=== PATIENT | female | born 1980 | race Caucasian/White ===

== ENCOUNTER 2023-04-10 14:01 | Outpatient (REF) | payer MEDICAID, SELFPAY ==
[2023-04-10 14:23] LABS: MANUAL DIFF FLAG NO
[2023-04-10 14:27] LABS: Basophils Absolute Auto 0.1 X10*3/uL (0.0-0.2); Eosinophils Absolute Auto 0.1 X10*3/uL (0.0-0.4); Eosinophils Percent Auto 2.7 % (0-4); Hematocrit 33.3 % (37.0-47.0); Imm Gran Abs Auto 0.01 X10*3/uL (0.00-0.03); Imm Gran Pct Auto 0.2 % (0.0-0.4); Lymphocytes Absolute Auto 1.8 X10*3/uL (1.2-4.9); Lymphocytes Percent Auto 37.1 % (20-40); Mean Corpuscular Hemoglobin 23.5 pg (27.0-33.0); Mean Corpuscular Volume 78.4 fL (80.0-98.0); Mean Platelet Volume 9.1 fL (9.4-12.3); Monocytes Absolute Auto 0.6 X10*3/uL (0.1-1.2); Monocytes Percent Auto 13.1 % (2-11); Neutrophils Absolute Auto 2.2 x10*3/uL (2.0-8.3); Neutrophils Percent Auto 45.9 % (45-73); Platelet Count 357 X10*3/uL (160-400); Red Blood Count 4.25 X10*6/uL (4.20-5.50); Red Cell Distribution Width 14.3 % (11.0-16.0); White Blood Count 4.9 X10*3/uL (4.8-10.8)
[2023-04-10 15:52] LABS: Alanine Aminotransferase 7 U/L (0-31); Albumin Level 3.8 g/dL (3.5-5.0); Alkaline Phosphatase 66 U/L (39-117); Anion Gap 11 (12-20); Aspartate Amino Transferase 13 U/L (5-31); Bilirubin Total 0.8 mg/dL (0.0-1.0); Blood Urea Nitrogen 12 mg/dL (9-16); Calcium 9.2 mg/dL (8.4-10.2); Carbon Dioxide 25 mmol/L (22-29); Chloride 108 mmol/L (96-108); Cholesterol 144 mg/dL; Estimated Glomerular Filt Rate > 60; Glucose Random 72 mg/dL (60-115); HDL Cholesterol 42 mg/dL; LDL Cholesterol Calculated 95 mg/dl; Potassium 3.8 mmol/L (3.3-5.1); Sodium 140 mmol/L (135-145); Triglycerides 38 mg/dL
[2023-04-10 16:00] LABS: Ferritin 6 ng/mL (10-250); Thyroid Stimulating Hormone 2.22 uIU/mL (0.32-4.0)
== END 2023-04-10 14:02 | disposition home or self-care (01) ==
LOC: HO.LAB 14:01
PROVIDERS: PCP Internal Medicine; Visit Provider Internal Medicine
DX: Z00.01 Encounter for general adult medical examination with abnormal findings (principal); E28.2 Polycystic ovarian syndrome; I10 Essential (primary) hypertension; R21 Rash and other nonspecific skin eruption; Z98.84 Bariatric surgery status
CPT/HCPCS: 36415; 80053; 80061; 82728; 84443; 85025

== ENCOUNTER 2023-04-17 16:19 | Outpatient (REF) | payer MEDICAID, SELFPAY ==
--- NOTE | ~2023-04-17 | MM_ITS ---
EXAMINATION: MM SCREENING DIGITAL BREAST TOMOSYNTHESIS, BILATERAL CLINICAL INFORMATION: Screening. Asymptomatic. Prior dag-bg-uhpap mammography from [place] currently unavailable. The lifetime risk of breast cancer based on the Tyrer-Cuzick Model is 14%. COMPARISON: None. TECHNIQUE: Digital breast tomosynthesis is performed in both the craniocaudal and mediolateral oblique views along with computer-aided detection (CAD). Synthesized 2D images are generated from the tomosynthesis. Additional left MLO view is provided. FINDINGS: There are scattered areas of fibroglandular density (ACR BI-RADS breast composition Category b). There are no significant masses, abnormal calcifications, or other abnormalities. No architectural abnormality. The axilla and skin contours are unremarkable. Radiology department staff will attempt to retrieve prior [id number]-[id number] mammography to allow for comparison in an addendum report. MM/MM tomosynthesis screening BI IMPRESSION: No mammographic evidence of malignancy. ASSESSMENT: BI-RADS 1: Negative RECOMMENDATION: 1. Routine annual mammography screening. 2. Radiology department staff will attempt to retrieve prior [id number] mammography to allow for comparison in an addendum report. This patient's information was entered into a reminder system with a target due date for their next mammogram.
== END 2023-04-17 16:20 | disposition home or self-care (01) ==
LOC: HO.MAMMO 16:19
PROVIDERS: PCP Internal Medicine; Visit Provider Internal Medicine
DX: Z12.31 Encounter for screening mammogram for malignant neoplasm of breast (principal)
CPT/HCPCS: 77063; 77067

== ENCOUNTER → 2023-05-08 13:26 | Outpatient (BNVA) | payer MEDICAID, SELFPAY | PROVIDERS: PCP Internal Medicine; Visit Provider Physician Assistant ==

== ENCOUNTER 2023-05-17 13:32 | Emergency (ER) | payer MEDICAID, SELFPAY ==
--- NOTE | ~2023-05-17 | US_ITS ---
EXAMINATION: US PELVIS CLINICAL INFORMATION: Pelvic pain rule out torsion. Past history of tubal ligation. COMPARISON: None available. TECHNIQUE: Ultrasound of the pelvis is performed using both transabdominal and transvaginal transducers along with Doppler. Transvaginal imaging is performed due to inadequate visualization transabdominally. FINDINGS: Uterus: The uterus is anteverted, anteflexed and measures 11.5 cm in length, 3.6 mL in AP and 5.7 cm transverse dimension. There is minimal fluid visualized in the cervical canal. The double wall endometrial thickness is 0.7 cm. The uterus is smooth in contour and has normal myometrial echogenicity. No visible fibroid. Adnexa: Both ovaries are visualized. There is normal color flow to the adnexa. There is no ovarian torsion. There is no pelvic ascites or fluid collection. Right ovary measures 2.4 x 2.0 x 2.5 cm and and volume 6.3 mL. There is an echogenic structure measuring 0.5 x 0.3 x 0.5 cm. Left ovary measures 5.4 x 3.3 x 4.0 cm and volume 37.3 mL. There is partially echogenic lesion left ovary measuring 2.4 x 2.3 x 2.6 cm. Question fatty lesion or dermoid. There is normal arterial and venous flow seen both ovaries with no suspicion for torsion. There is small amount of free fluid in the cul-de-sac.. US/US pelvic ovarian doppler IMPRESSION: Unremarkable uterus. Small echogenic calcification right ovary and fatty tumor or dermoid left ovary. Normal arterial and venous flow seen to both ovaries with no suspicion for torsion
--- NOTE | ~2023-05-17 | US_ITS ---
EXAMINATION: US PELVIS CLINICAL INFORMATION: Pelvic pain rule out torsion. Past history of tubal ligation. COMPARISON: None available. TECHNIQUE: Ultrasound of the pelvis is performed using both transabdominal and transvaginal transducers along with Doppler. Transvaginal imaging is performed due to inadequate visualization transabdominally. FINDINGS: Uterus: The uterus is anteverted, anteflexed and measures 11.5 cm in length, 3.6 mL in AP and 5.7 cm transverse dimension. There is minimal fluid visualized in the cervical canal. The double wall endometrial thickness is 0.7 cm. The uterus is smooth in contour and has normal myometrial echogenicity. No visible fibroid. Adnexa: Both ovaries are visualized. There is normal color flow to the adnexa. There is no ovarian torsion. There is no pelvic ascites or fluid collection. Right ovary measures 2.4 x 2.0 x 2.5 cm and and volume 6.3 mL. There is an echogenic structure measuring 0.5 x 0.3 x 0.5 cm. Left ovary measures 5.4 x 3.3 x 4.0 cm and volume 37.3 mL. There is partially echogenic lesion left ovary measuring 2.4 x 2.3 x 2.6 cm. Question fatty lesion or dermoid. There is normal arterial and venous flow seen both ovaries with no suspicion for torsion. There is small amount of free fluid in the cul-de-sac.. US/US pelvic and transvaginal IMPRESSION: Unremarkable uterus. Small echogenic calcification right ovary and fatty tumor or dermoid left ovary. Normal arterial and venous flow seen to both ovaries with no suspicion for torsion
[2023-05-17 14:08] VITALS: BP 130/77; PULSE 71; RESP 16; TEMP 36.2; O2SAT 100; BMI 36.4
[2023-05-17 14:30] LABS: MANUAL DIFF FLAG NO
[2023-05-17 14:31] LABS: Basophils Absolute Auto 0.1 X10*3/uL (0.0-0.2); Basophils Percent Auto 0.7 % (0-2); Eosinophils Absolute Auto 0.1 X10*3/uL (0.0-0.4); Hematocrit 36.7 % (37.0-47.0); Hemoglobin 10.5 g/dl (12.0-16.0); Imm Gran Abs Auto 0.02 X10*3/uL (0.00-0.03); Imm Gran Pct Auto 0.3 % (0.0-0.4); Lymphocytes Absolute Auto 1.6 X10*3/uL (1.2-4.9); Lymphocytes Percent Auto 22.3 % (20-40); Mean Corpuscular HGB Conc 28.6 g/dl (31.0-35.0); Mean Corpuscular Hemoglobin 22.2 pg (27.0-33.0); Mean Corpuscular Volume 77.8 fL (80.0-98.0); Mean Platelet Volume 8.9 fL (9.4-12.3); Monocytes Absolute Auto 0.8 X10*3/uL (0.1-1.2); Monocytes Percent Auto 11.9 % (2-11); Neutrophils Absolute Auto 4.4 x10*3/uL (2.0-8.3); Neutrophils Percent Auto 63.8 % (45-73); Platelet Count 367 X10*3/uL (160-400); Red Blood Count 4.72 X10*6/uL (4.20-5.50); Red Cell Distribution Width 14.8 % (11.0-16.0)
[2023-05-17 14:34] LABS: Appearance Urine Clear; Color Urine Yellow; Glucose Urine UA Negative (Negative); Leukocyte Esterase Urine Negative (Negative); Nitrite Urine Negative (Negative); PH 5.5 (5.0-9.0); Specific Gravity - Urine 1.025 (1.005-1.025); Urine Blood Negative (Negative); Urine Ketones Trace mg/dL (Negative); Urine Protein Negative (Neg-Trace)
[2023-05-17 14:36] LABS: UPreg QC Valid YES; Urine Pregnancy NEGATIVE (NEGATIVE)
--- NOTE | 2023-05-17 14:38 | ED_ITS ---
HPI - Abdominal Pain General Chief Complaint: Abdominal Pain Stated Complaint: lower abd pain Time Seen by Provider: 05/17/23 14:34 Source: patient Mode of arrival: ambulatory Limitations: no limitations History of Present Illness HPI narrative: This is a 42 years old female presented to the emergency department with a chief complaint of lower abdominal pain. Pain started a couple of days ago. She has history of ovarian cysts. The pain is localized in the lower abdomen without radiation there is no fever no chills no vomiting. MD elicited complaint: abdominal pain Pertinent past history: other (ovarian cyst) Onset (ago): day(s) (3) Pain Consistency: constant Location: other (pelvis) Severity: mild Quality: aching Migration to: no migration Associated symptoms: denies other symptoms Related Data Home Medications Medication Instructions Recorded Confirmed ferrous sulfate 325 mg (65 mg 325 mg PO DAILY 05/08/23 05/08/23 iron) tablet (Feosol) Allergies Allergy/AdvReac Type Severity Reaction Status Date / Time avocado Allergy Intermediate Anaphylaxis Verified 05/08/23 14:09 perez Allergy Intermediate Anaphylaxis Verified 05/08/23 14:09 NUTS Allergy Intermediate Anaphylaxis Uncoded 05/08/23 14:09 Review of Systems Constitutional: Reports no additional constitutional complaints Reports system reviewed and no additional complaints, except as documented PMFSH Past Medical History Attestation statement: The following information was validated with the patient. Surgical History History of sleeve gastrectomy Hx of abdominoplasty Hx of section Hx of tubal ligation Family History Family History Mother Diabetes Hypertension Father Diabetes Hypertension History of open heart surgery Sister Hypertension Fatty liver Sister Diabetes Hypertension Fatty liver Social History Social History Alcohol intake: current Alcohol intake frequency: does not drink Patient Tobacco Use Status: Former Tobacco user Quit Date: 1999 Physical Exam ED Vital Signs: Vital Signs - 24 hr 05/17/23 14:08 05/17/23 15:45 Temperature 97.2 F Pulse Rate 71 62 Respiratory Rate 16 17 Blood Pressure 130/77 129/62 Pulse Oximetry 100 99 Oxygen Delivery Method Room Air Room Air BMI result Body Mass Index 36.4 Const General: cooperative Nutritional Appearance: well nourished Orientation/consciousness: patient oriented x3 Limitations: no limitations HENMT Head: Yes normal to inspection Ears: hearing grossly normal bilaterally General nose exam: Normal external nose present Face and sinus: Yes normal facial exam Mouth: Normal oral and palatal mucosa present Throat: Yes posterior oropharynx normal Neck Neck: Yes normal visual inspection Thyroid: Thyroid normal Chest Chest palpation & inspection: normal inspection of the chest Resp Effort & Inspection: normal respiratory effort GI Inspection: Yes normal to inspection Palpation (GI): Soft to palpation, not firm, nontender and no guarding Skin General skin exam: no rashes or lesions noted, elasticity normal and turgor normal Lesions: no lesions Rashes: no rashes Neuro General: patient oriented x3 Medical Decision Making Medical Decision Making MDM Narrative: Patient presented complaining of lower abdominal pain she has history of ovarian cyst it is reasonable to get an ultrasound labs, urine and reassessed Differential Diagnosis Differential Diagnoses: The differential diagnosis associated with the presen tation includes Ovarian torsion/ovarian cyst/doubt appendicitis pain is not localized in the right/doubt diverticulitis patient has no localized in the left Admission/Observation Consideration of admission/observation: Escalation of care including admission/observation considered Lab Data 05/17/23 14:25 05/17/23 14:25 Labs: Lab Results 05/17/23 05/17/23 05/17/23 Range/Units 14:25 14:25 14:25 WBC 7.0 (4.8-10.8) X10*3/uL RBC 4.72 (4.20-5.50) X10*6/uL Hgb 10.5 L (12.0-16.0) g/dl Hct 36.7 L (37.0-47.0) % MCV 77.8 L (80.0-98.0) fL MCH 22.2 L (27.0-33.0) pg MCHC 28.6 L (31.0-35.0) g/dl RDW 14.8 (11.0-16.0) % Plt Count 367 (160-400) X10*3/uL MPV 8.9 L (9.4-12.3) fL Immature Gran % (Auto) 0.3 (0.0-0.4) % Neut % (Auto) 63.8 (45-73) % Lymph % (Auto) 22.3 (20-40) % [place] % (Auto) 11.9 H (2-11) % Eos % (Auto) 1.0 (0-4) % Baso % (Auto) 0.7 (0-2) % Lymph # (Auto) 1.6 (1.2-4.9) X10*3/uL [place] # (Auto) 0.8 (0.1-1.2) X10*3/uL Eos # (Auto) 0.1 (0.0-0.4) X10*3/uL Baso # (Auto) 0.1 (0.0-0.2) X10*3/uL Abs Immat Gran (auto) 0.02 (0.00-0.03) X10*3/uL Absolute Neuts (auto) 4.4 (2.0-8.3) x10*3/uL Absolute Nucleated RBC 0.000 (0.0-0.012) X10*3/uL Nucleated RBC % (auto) 0.0 (0.0-0.2) /100WBC Sodium 140 (135-145) mmol/L Potassium 3.5 (3.3-5.1) mmol/L Chloride 106 (96-108) mmol/L Carbon Dioxide 26 (22-29) mmol/L Anion Gap 12 (12-20) BUN 12 (9-16) mg/dL Creatinine 0.74 (0.5-1.4) mg/dL Estim Creat Clear Calc 93.5 Estimated GFR > 60 Random Glucose 85 (60-115) mg/dL Calcium 9.2 (8.4-10.2) mg/dL Total Bilirubin 0.8 (0.0-1.0) mg/dL Direct Bilirubin 0.3 (0.0-0.5) mg/dL AST 13 (5-31) U/L ALT 9 (0-31) U/L Alkaline Phosphatase 77 (39-117) U/L Total Protein 7.6 (6.5-8.0) g/dL Albumin 4.2 (3.5-5.0) g/dL Urine Color Yellow Urine Appearance Clear Urine pH 5.5 (5.0-9.0) Ur Specific [place] 1.025 (1.005-1.025) Urine Protein Negative (Neg-Trace) mg/dL Urine Glucose (UA) Negative (Negative) mg/dL Urine Ketones Trace (Negative) mg/dL Urine Blood Negative (Negative) Urine Nitrite Negative (Negative) Ur Leukocyte Esterase Negative (Negative) Urine Test (NEGATIVE) 05/17/23 Range/Units 14:25 WBC (4.8-10.8) X10*3/uL RBC (4.20-5.50) X10*6/uL Hgb (12.0-16.0) g/dl Hct (37.0-47.0) % MCV (80.0-98.0) fL MCH (27.0-33.0) pg MCHC (31.0-35.0) g/dl RDW (11.0-16.0) % Plt Count (160-400) X10*3/uL MPV (9.4-12.3) fL Immature Gran % (Auto) (0.0-0.4) % Neut % (Auto) (45-73) % Lymph % (Auto) (20-40) % [place] % (Auto) (2-11) % Eos % (Auto) (0-4) % Baso % (Auto) (0-2) % Lymph # (Auto) (1.2-4.9) X10*3/uL [place] # (Auto) (0.1-1.2) X10*3/uL Eos # (Auto) (0.0-0.4) X10*3/uL Baso # (Auto) (0.0-0.2) X10*3/uL Abs Immat Gran (auto) (0.00-0.03) X10*3/uL Absolute Neuts (auto) (2.0-8.3) x10*3/uL Absolute Nucleated RBC (0.0-0.012) X10*3/uL Nucleated RBC % (auto) (0.0-0.2) /100WBC Sodium (135-145) mmol/L Potassium (3.3-5.1) mmol/L Chloride (96-108) mmol/L Carbon Dioxide (22-29) mmol/L Anion Gap (12-20) BUN (9-16) mg/dL Creatinine (0.5-1.4) mg/dL Estim Creat Clear Calc Estimated GFR Random Glucose (60-115) mg/dL Calcium (8.4-10.2) mg/dL Total Bilirubin (0.0-1.0) mg/dL Direct Bilirubin (0.0-0.5) mg/dL AST (5-31) U/L ALT (0-31) U/L Alkaline Phosphatase (39-117) U/L Total Protein (6.5-8.0) g/dL Albumin (3.5-5.0) g/dL Urine Color Urine Appearance Urine pH (5.0-9.0) Ur Specific [place] (1.005-1.025) Urine Protein (Neg-Trace) mg/dL Urine Glucose (UA) (Negative) mg/dL Urine Ketones (Negative) mg/dL Urine Blood (Negative) Urine Nitrite (Negative) Ur Leukocyte Esterase (Negative) Urine Test NEGATIVE (NEGATIVE) Discharge Plan Discharge Clinical Impression: Pelvic pain Patient Disposition: Still a Patient Instructions: Pelvic Pain (ED) Prescriptions: No Action ferrous sulfate [Feosol] 325 mg (65 mg iron) tablet 325 mg PO DAILY
[2023-05-17 14:47] LABS: Alanine Aminotransferase 9 U/L (0-31); Albumin Level 4.2 g/dL (3.5-5.0); Alkaline Phosphatase 77 U/L (39-117); Anion Gap 12 (12-20); Aspartate Amino Transferase 13 U/L (5-31); Bilirubin Direct 0.3 mg/dL (0.0-0.5); Bilirubin Total 0.8 mg/dL (0.0-1.0); Blood Urea Nitrogen 12 mg/dL (9-16); Calcium 9.2 mg/dL (8.4-10.2); Carbon Dioxide 26 mmol/L (22-29); Chloride 106 mmol/L (96-108); Creatinine Clr Calc Pharmacy 93.5; Estimated Glomerular Filt Rate > 60; Glucose Random 85 mg/dL (60-115); Potassium 3.5 mmol/L (3.3-5.1); Sodium 140 mmol/L (135-145); Total Protein 7.6 g/dL (6.5-8.0)
[2023-05-17 15:45] VITALS: BP 129/62; PULSE 62; RESP 17; O2SAT 99
[2023-05-17] MEDS: oxyCODONE HCl Immed Release 5 MG TABLET PO (16:51)
[2023-05-17 16:53] VITALS: RESP 16
== END 2023-05-17 17:02 | disposition home or self-care (01) ==
PROVIDERS: Emergency Medicine; Emergency Provider Emergency Medicine; PCP Internal Medicine
DX: R10.2 Pelvic and perineal pain (principal); N83.8 Other noninflammatory disorders of ovary, fallopian tube and broad ligament
CPT/HCPCS: 36415; 76830; 76856; 80048; 80076; 81003; 81025; 85025; 93975; 99284

== ENCOUNTER 2023-06-05 13:23 | Outpatient (AMB) | payer MEDICAID, SELFPAY ==
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
[2023-06-05 13:37] VITALS: BP 137/67; PULSE 70; TEMP 36.3; O2SAT 98; BMI 33.8
[2023-06-23 14:26] LABS: H Pylori Breath Test Positive (Negative)
== END 2023-06-05 14:55 | disposition home or self-care (01) ==
PROVIDERS: PCP Internal Medicine; Visit Provider Physician Assistant
DX: E66.9 Obesity, unspecified (principal); Z68.33 Body mass index [BMI] 33.0-33.9, adult; Z90.3 Acquired absence of stomach [part of]; Z98.84 Bariatric surgery status
CPT/HCPCS: 99205

== ENCOUNTER → 2023-06-05 13:23 | Outpatient (BNVA) | payer MEDICAID, SELFPAY | PROVIDERS: PCP Internal Medicine; Visit Provider Physician Assistant | DX: K21.9 Gastro-esophageal reflux disease without esophagitis (principal); E66.9 Obesity, unspecified; D64.9 Anemia, unspecified; Z68.33 Body mass index [BMI] 33.0-33.9, adult; Z90.3 Acquired absence of stomach [part of]; Z11.2 Encounter for screening for other bacterial diseases; Z98.890 Other specified postprocedural states | CPT/HCPCS: 36415; 83013; 99205 ==

== ENCOUNTER 2023-06-07 06:10 | Emergency (ER) | payer OTHER, MEDICAID, SELFPAY ==
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
--- NOTE | ~2023-06-07 | XR_ITS ---
EXAMINATION: XR SHOULDER, RIGHT CLINICAL INFORMATION: Pain COMPARISON: None available. TECHNIQUE: AP external rotation, Grashey, scapular Y, and axillary views of the right shoulder. FINDINGS: Bone alignment is normal. No acute fracture or dislocation. There is mild arthritis at the acromioclavicular joint. There are periarticular soft tissue ossifications in this region adjacent to the acromion, question representing osteophyte/degenerative change versus changes related to old trauma. Glenohumeral joint is normal. Soft tissues are normal. XR/XR shoulder RT min 2V IMPRESSION: No acute fracture. Arthritis at the acromioclavicular joint. Question osteophytes versus old trauma to the acromion.
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
[2023-06-07 06:27] VITALS: BP 139/71; PULSE 61; RESP 18; TEMP 36.4; O2SAT 99; BMI 36.6
[2023-06-07 07:01] VITALS: BP 166/77; PULSE 103; RESP 18; TEMP 36.9; O2SAT 98
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
[2023-06-07 08:33] VITALS: BP 120/64; PULSE 56; RESP 18; TEMP 36.7; O2SAT 98
--- NOTE | 2023-06-07 10:11 | PC.NURSE ---
Discharge instructions reviewed with patient who verbalized understanding
== END 2023-06-07 10:12 | disposition home or self-care (01) ==
PROVIDERS: Emergency Provider Emergency Medicine Emergency Medical Services; PCP Internal Medicine
DX: M19.019 Primary osteoarthritis, unspecified shoulder (principal); M25.562 Pain in left knee; M25.561 Pain in right knee; R51.9 Headache, unspecified; M54.2 Cervicalgia; S00.93XA Contusion of unspecified part of head, initial encounter; S40.011A Contusion of right shoulder, initial encounter; S80.02XA Contusion of left knee, initial encounter; S80.01XA Contusion of right knee, initial encounter; V43.62XA Car passenger injured in collision with other type car in traffic accident, initial encounter; Y93.9 Activity, unspecified; Y92.9 Unspecified place or not applicable; Y99.9 Unspecified external cause status
CPT/HCPCS: 70450; 72125; 73030; 73562; 99284

== ENCOUNTER → 2023-06-19 13:49 | Outpatient (BNVA) | payer MEDICAID, SELFPAY | PROVIDERS: PCP Internal Medicine; Referring Provider Physician Assistant; Visit Provider Dietitian, Registered | DX: E66.9 Obesity, unspecified (principal) | CPT/HCPCS: 97802; 99211 ==

== ENCOUNTER 2023-06-19 16:30 | Outpatient (REF) | payer MEDICAID, SELFPAY ==
--- NOTE | ~2023-06-19 | XR_ITS ---
EXAMINATION: XR HAND, RIGHT CLINICAL INFORMATION: Pain. COMPARISON: None available. TECHNIQUE: PA, lateral, and oblique views of the right hand. FINDINGS: The bones and soft tissues are normal. No fracture. Alignment is anatomic. Joint spaces are maintained. No erosions or soft tissue calcifications. XR/XR hand RT min 3V IMPRESSION: Normal right hand.
== END 2023-06-19 16:31 | disposition home or self-care (01) ==
LOC: HO.XRAY 16:30
PROVIDERS: PCP Internal Medicine; Visit Provider Internal Medicine
DX: M79.641 Pain in right hand (principal)
CPT/HCPCS: 73130

== ENCOUNTER 2023-06-26 13:27 | Outpatient (AMB) | payer MEDICAID, SELFPAY ==
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
[2023-06-26 13:43] VITALS: BP 143/74; PULSE 71; TEMP 36.6; O2SAT 99; BMI 35.5
== END 2023-06-26 14:18 | disposition home or self-care (01) ==
PROVIDERS: PCP Internal Medicine; Visit Provider Physician Assistant
DX: E66.9 Obesity, unspecified (principal); Z90.3 Acquired absence of stomach [part of]; K21.9 Gastro-esophageal reflux disease without esophagitis
CPT/HCPCS: 99214

== ENCOUNTER → 2023-06-26 13:27 | Outpatient (BNVA) | payer MEDICAID, SELFPAY | PROVIDERS: PCP Internal Medicine; Visit Provider Physician Assistant | DX: E66.9 Obesity, unspecified (principal); Z68.35 Body mass index [BMI] 35.0-35.9, adult; K21.9 Gastro-esophageal reflux disease without esophagitis; Z90.3 Acquired absence of stomach [part of] | CPT/HCPCS: 99212 ==

== ENCOUNTER 2023-07-01 11:54 | Outpatient (REF) | payer MEDICAID, SELFPAY ==
--- NOTE | ~2023-07-01 | XR_ITS ---
EXAMINATION: XR CHEST CLINICAL INFORMATION: Obesity COMPARISON: None available. TECHNIQUE: 2 views of the chest were obtained. FINDINGS: Lungs are well-inflated and clear. Trachea is midline in position. No interstitial disease, consolidation or mass. No pleural effusion or pneumothorax. Cardiac silhouette and pulmonary vessels are normal in size. The mediastinum and maya have normal contour. Small anastomotic wade are seen in the epigastric region. Skeletal structures are unremarkable. XR/XR chest 2V IMPRESSION: Lungs are normal. No evidence of active cardiopulmonary disease.
--- NOTE | 2023-07-01 12:13 | ECG_ITS ---
Test Reason : e66.9 Blood Pressure : / mmHG Vent. Rate : 056 BPM Atrial Rate : 056 BPM P-R Int : 148 ms QRS Dur : 078 ms QT Int : 394 ms P-R-T Axes : 015 036 019 degrees QTc Int : 380 ms Sinus bradycardia Otherwise normal ECG No previous ECGs available Referred By: Cristal Shukla Electronically Signed By:BERNADINE SCHOFIELD
[2023-07-01 12:16] LABS: MANUAL DIFF FLAG NO
[2023-07-01 13:36] LABS: Basophils Absolute Auto 0.1 X10*3/uL (0.0-0.2); Basophils Percent Auto 1.5 % (0-2); Eosinophils Absolute Auto 0.1 X10*3/uL (0.0-0.4); Eosinophils Percent Auto 2.8 % (0-4); Hemoglobin 9.6 g/dl (12.0-16.0); Imm Gran Abs Auto 0.01 X10*3/uL (0.00-0.03); Imm Gran Pct Auto 0.3 % (0.0-0.4); Lymphocytes Absolute Auto 1.5 X10*3/uL (1.2-4.9); Lymphocytes Percent Auto 37.9 % (20-40); Mean Corpuscular Hemoglobin 22.3 pg (27.0-33.0); Mean Corpuscular Volume 74.2 fL (80.0-98.0); Mean Platelet Volume 9.6 fL (9.4-12.3); Monocytes Absolute Auto 0.6 X10*3/uL (0.1-1.2); Monocytes Percent Auto 14.5 % (2-11); Neutrophils Absolute Auto 1.7 x10*3/uL (2.0-8.3); Platelet Count 388 X10*3/uL (160-400); Red Blood Count 4.31 X10*6/uL (4.20-5.50); Red Cell Distribution Width 15.7 % (11.0-16.0); White Blood Count 3.9 X10*3/uL (4.8-10.8)
[2023-07-01 14:36] LABS: Estimated Average Glucose 100 mg/dL; Hemoglobin A1c % 5.1 % (<6.0)
[2023-07-01 15:06] LABS: Alanine Aminotransferase 8 U/L (0-31); Albumin Level 3.8 g/dL (3.5-5.0); Alkaline Phosphatase 60 U/L (39-117); Anion Gap 9 (12-20); Aspartate Amino Transferase 14 U/L (5-31); Bilirubin Total 0.8 mg/dL (0.0-1.0); Blood Urea Nitrogen 11 mg/dL (9-16); C Reactive Protein < 0.10 mg/dL (< or = 0.50); Calcium 8.8 mg/dL (8.4-10.2); Carbon Dioxide 25 mmol/L (22-29); Chloride 109 mmol/L (96-108); Cholesterol 149 mg/dL (<200); Estimated Glomerular Filt Rate > 60; Glucose Random 72 mg/dL (60-115); HDL Cholesterol 45 mg/dL (>40); Iron 35 mcg/dL (30-160); LDL Cholesterol Calculated 97 mg/dL (<100); Percent Iron Saturation 10 % (15-50); Potassium 3.9 mmol/L (3.3-5.1); Sodium 139 mmol/L (135-145); Total Iron Binding Capacity 368 mcg/dL (228-428); Total Protein 6.9 g/dL (6.5-8.0); Triglycerides 36 mg/dL (<150); Unsaturated Iron Binding 333 ug/dL
[2023-07-01 15:11] LABS: Ferritin 5 ng/mL (10-250); Insulin 4 uU/mL (2-29); Vitamin D 25-OH Total 26.5 ng/mL (>30)
[2023-07-01 15:31] LABS: Folate 12.2 ng/mL (> or = 4.0); Vitamin B12 424 pg/mL (200-900)
[2023-07-02 16:38] LABS: Calcium (PTHI) 8.9 mg/dL (8.6-10.2); PTHI 75 pg/mL (16-77)
[2023-07-06 03:23] LABS: Vitamin B1 11 nmol/L (8-30)
[2023-07-08 03:30] LABS: Vitamin A 29 mcg/dL (38-98)
== END 2023-07-01 11:55 | disposition home or self-care (01) ==
LOC: HO.LAB 11:54
PROVIDERS: PCP Internal Medicine; Visit Provider Physician Assistant
DX: E66.9 Obesity, unspecified (principal); K21.9 Gastro-esophageal reflux disease without esophagitis; Z90.3 Acquired absence of stomach [part of]
CPT/HCPCS: 36415; 71046; 80053; 80061; 82306; 82607; 82728; 82746; 83036; 83525; 83540; 83970; 84425; 84443; 84590; 84630; 85025; 86140; 93005

== ENCOUNTER 2023-07-02 14:53 | Outpatient (REF) | payer MEDICAID, SELFPAY ==
[2023-07-03 08:31] LABS: ~Hepatitis B Surface Antibody NONREACTIVE (Nonreactive)
[2023-07-04 22:24] LABS: TS Negative Control Passed; TS Panel A 0; TS Panel B 0; TS Positive Control Passed; TSpotTB Negative (Negative)
== END 2023-07-02 14:54 | disposition home or self-care (01) ==
LOC: HO.LAB 14:53
PROVIDERS: PCP Internal Medicine; Visit Provider Internal Medicine
DX: I10 Essential (primary) hypertension (principal); Z11.1 Encounter for screening for respiratory tuberculosis; Z11.59 Encounter for screening for other viral diseases
CPT/HCPCS: 36415; 86481; 86706

== ENCOUNTER 2023-07-10 11:48 | Outpatient (AMB) | payer MEDICAID, SELFPAY ==
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
== END 2023-07-10 13:00 | disposition home or self-care (01) ==
PROVIDERS: PCP Internal Medicine; Referring Provider Physician Assistant; Visit Provider Counselor Mental Health
DX: F43.23 Adjustment disorder with mixed anxiety and depressed mood (principal)
CPT/HCPCS: 90791

== ENCOUNTER → 2023-07-10 11:48 | Outpatient (BNVA) | payer OTHER, SELFPAY | PROVIDERS: PCP Internal Medicine; Referring Provider Physician Assistant; Visit Provider Counselor Mental Health | DX: F43.23 Adjustment disorder with mixed anxiety and depressed mood (principal) | CPT/HCPCS: 90791 ==

== ENCOUNTER → 2023-07-17 10:42 | Outpatient (BNVA) | payer MEDICAID, SELFPAY | PROVIDERS: PCP Internal Medicine; Visit Provider Dietitian, Registered | DX: E66.9 Obesity, unspecified (principal); K21.9 Gastro-esophageal reflux disease without esophagitis; Z59.41 Food insecurity; Z90.3 Acquired absence of stomach [part of] | CPT/HCPCS: 97803 ==

== ENCOUNTER 2023-07-22 09:34 | Outpatient (REF) | payer MEDICAID, SELFPAY ==
--- NOTE | ~2023-07-22 | US_ITS ---
EXAMINATION: US COMPLETE ABDOMEN WITH LIVER ELASTOGRAPHY CLINICAL INFORMATION: Obesity. COMPARISON: None available. TECHNIQUE: Real-time imaging of the abdominal viscera. Noninvasive ultrasound liver fibrosis assessment is performed using Chyna ElastPQ point quantification shear wave elastography (2D-SWE) with a C5-2 MHz transducer. Multiple elastography samples are obtained. FINDINGS: PANCREAS: The tail of pancreas obscured by overlying gas. The head and the body the pancreas is homogeneous in echotexture. ABDOMINAL AORTA: The proximal, middle, and distal aortic segments are normal in caliber. INFERIOR VENA CAVA: Visualized portions are normal. LIVER: The liver demonstrates normal size, contour and coarse echotexture. No focal lesion or intrahepatic biliary duct dilatation. The right lobe measures 13.9 cm in length. The left lobe measures 7.5 cm in length. Portal flow is hepatopedal Shear wave liver elastography median stiffness is 1.61 m/s (reference: normal median stiffness is 1.3 m/s or less). IQR/median stiffness to assess sampling precision is 0.19 (reference: good quality data set is IQR/median stiffness of 0.15 or less). GALLBLADDER: Normal. The gallbladder is physiologically distended without evidence of stones, sludge, polyps, wall thickening or pericholecystic fluid. COMMON BILE DUCT: Normal in caliber measuring 0.2 cm in diameter. RIGHT KIDNEY: Normal. No hydronephrosis. No renal calculi or focal parenchymal lesions. The kidney measures 9.4 cm in maximum dimension. LEFT KIDNEY: Normal. No hydronephrosis. No renal calculi or focal parenchymal lesions. The kidney measures 10.6 cm in maximum dimension. SPLEEN: Normal. The spleen measures 10.0 cm in maximum dimension. FREE FLUID: None. US/US abdomen comp w elastography IMPRESSION: 1. Mild coarse echogenic liver. Rest of the abdominal ultrasound is unremarkable. 2. Liver elastography: Median liver stiffness measures 1.61 m/s. There is a suggestive of c ACLD ruled out. REFERENCE: Society of Radiologists in Ultrasound Liver Stiffness Thresholds (2020): LIVER STIFFNESS THRESHOLDS: *Liver Stiffness equal or less than 1.3 m/s: High probability of being normal. *Liver Stiffness less than 1.7 m/s: In the absence of other known clinical signs, rules out compensated advanced chronic liver disease. *Liver Stiffness 1.7-2.1 m/s: Suggestive of compensated advanced chronic liver disease but need further test for confirmation. *Liver Stiffness over 2.1 m/s: Rules in compensated advanced chronic liver disease. *Liver Stiffness over 2.4 m/s: Suggestive of clinically significant portal hypertension. QUALITY OF DATA SET: *IQR/Median value equal or less than 0.15 implies a quality data set. *IQR/Median value over 0.15 implies a poor quality data set. SIGNIFICANT CHANGE FROM PRIOR EXAM: Significant change if liver stiffness measurement is 10% or greater from prior exam. OTHER CONSIDERATIONS: The stage of liver fibrosis may be overestimated in the setting of acute hepatitis, liver inflammation, elevated liver function tests, hepatic vascular congestion, obstructive cholestasis, non-fasting state, and infiltrative diseases such as amyloidosis and lymphoma. In some patients with NAFLD, the liver stiffness thresholds for compensated advanced chronic liver disease may be lower. In causes other than viral hepatitis and NAFLD, liver stiffness thresholds are not well established.
--- NOTE | ~2023-07-22 | FL_ITS ---
EXAMINATION: XR FLUOROSCOPY UPPER GI WITH AIR CLINICAL INFORMATION: 42-year-old female status post gastric sleeve, now gaining weight once again. No other complaints. COMPARISON: No prior. TECHNIQUE: Fluoroscopic air contrast upper GI examination was performed utilizing standard techniques with thin and thick barium and effervescent granules. Numerous spot images were obtained. FINDINGS: Hypopharyngeal structures appear normal without evidence of mass or diverticulum. There was no significant cricopharyngeal achalasia. Dual and single contrast images of the esophagus demonstrate it is mildly tortuous and somewhat patulous. No mucosal abnormality. No evidence of stricture, mass, or ulcerations identified. Esophageal peristalsis was essentially normal involving the primary peristaltic wave, however mild somewhat disordered tertiary contractions were present as well, particularly when the patient refluxed. Small to moderate sized type I hiatus hernia present. Episodic and profound gastroesophageal reflux was observed numerous times throughout the examination, to the level of the thoracic inlet. Dual contrast and single contrast images of the stomach demonstrate contour consistent with prior gastric sleeve procedure. No definite dilatation seen. No evidence of mass, ulceration, or other abnormality. Contrast freely passed into the gastric antrum and duodenal bulb. Single and air-contrast images of the duodenal bulb demonstrate no abnormality. The duodenal sweep has a normal appearance, course, and mucosal fold appearance. The imaged proximal jejunum has a normal fold pattern and caliber. FLUOROSCOPY TIME: 2 minutes 44 seconds Number of Spot Images: 13 fluoroscopic spot images acquired; 4 image hold cine loop fluoroscopic images obtained. DOSE AREA PRODUCT: 3045 uGy-m2 (microgray-meter squared) FL/FL upper GI w air IMPRESSION: 1. Stomach contour as expected after gastric sleeve procedure. No definite dilatation seen. 2. Small to moderate-sized type I hiatus hernia. 3. Episodic and profound gastroesophageal reflux to the level of the thoracic inlet, likely causing a patulous esophagus with mild esophageal tortuosity. No mucosal abnormality or stricture. Mild presbyesophagus. 4. Normal duodenal bulb, duodenal sweep, and proximal jejunum.
== END 2023-07-22 09:35 | disposition home or self-care (01) ==
LOC: HO.US 09:34
PROVIDERS: PCP Internal Medicine; Visit Provider Physician Assistant
DX: E66.9 Obesity, unspecified (principal); K21.9 Gastro-esophageal reflux disease without esophagitis; Z90.3 Acquired absence of stomach [part of]
CPT/HCPCS: 74246; 76705; 76981

== ENCOUNTER → 2023-07-22 09:36 | Outpatient (BNV) | payer MEDICAID, SELFPAY | PROVIDERS: PCP Internal Medicine; Visit Provider Radiology Diagnostic Radiology | DX: K44.9 Diaphragmatic hernia without obstruction or gangrene (principal); K22.89 Other specified disease of esophagus | CPT/HCPCS: 74246 ==

== ENCOUNTER 2023-07-23 14:51 | Outpatient (AMB) | payer MEDICAID, SELFPAY ==
--- NOTE | 2023-07-23 14:52 | A.OFFVIS_ITS ---
Intake VS Expanded 07/23/23 14:56 Height 5 ft 0.5 in Weight 181 lb 6.4 oz BMI 34.8 BP 125/60 Blood Pressure Location Rt brachial Blood Pressure Position Sitting Respiratory Rate 16 Pulse 76 Pulse Source Pulse Oximeter Temp 98.5 F Temperature Source Temporal Artery Scan Pulse Oximetry 99 Oxygen Delivery Method Room Air Body Fat 57.6 Body Fat Percentage 31.8 Free Fat Mass 123.6 Muscle Mass 117.6 Visceral Mass 8.0 Water Mass 88.2 BMR 1,666 Intake Visit Reasons: (OV) F/U SWL Allergies avocado Allergy (Intermediate, Verified 07/23/23 14:59) Anaphylaxis perez Allergy (Intermediate, Verified 07/23/23 14:59) Anaphylaxis NUTS Allergy (Intermediate, Uncoded 07/23/23 14:59) Anaphylaxis Medication List - Last Reconciled 07/23/23 by Cristal Shukla PA-C acetaminophen (Tylenol Extra Strength) 500 mg PO Q6H PRN acetaminophen-codeine 300-15 mg 1 tab PO BID PRN cyclobenzaprine 5 mg PO Q8H PRN 5 days ergocalciferol (vitamin D2) 2,500 mcg PO QWEEK ferrous sulfate (Feosol) 325 mg PO DAILY lidocaine 5% (Lidoderm) 1 patch topical DAILY PRN MDD remove after 12 hours losartan 50 mg PO DAILY naproxen 500 mg PO BID PRN 10 days vitamin A palmitate 6,000 mcg (2 x 3,000 mcg (10,000 unit)) PO DAILY 2 weeks HPI HPI Comments History of Present Illness Details 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 Wakes at 10 am, bed at 3am Meal plan - no routine yet yesterday - coffee - whole milk,sugar, with 2 pieces of bread with PB 2 hours later - Ensure Pepe 4-6 hours later - vegetables with potato es and pork tenderloin. water [place] from [employer] - chicken, l&T, sour cream and cheese, water Exercise - none yet Saw physical science aide last month and given OCPS' for AUB - will start this week. SW classe - 06/03 CR - needs followup Amy - 08/21 Labs - VERY anemic, vit D and A defic hpylori - today CXR - normal UGI - 1. Stomach contour as expected after gastric sleeve procedure. No definite dilatation seen. 2. Small to moderate-sized type I hiatus hernia. 3. Episodic and profound gastroesophagea l reflux to the level of the thoracic inlet, likely causing a patulous esophagus with mild esophageal tortuosity. No mucosal abnormality or stricture. Mild presbyesophagus. 4. Normal duodenal bulb, duodenal sweep, and proximal jejunum. ECG - mild bradycardia otherwise normal [facility] Surgical History Hx of abdominoplasty History of sleeve gastrectomy Hx of tubal ligation Hx of section Family History Mother Diabetes Hypertension Father Diabetes Hypertension History of open heart surgery Sister Hypertension Fatty liver Sister Diabetes Hypertension Fatty liver Social History Alcohol intake: never Patient Tobacco Use Status: Former Tobacco user Quit Date: 1999 Advance Directives Date on File: 05/17/23 Physical Exam Vital Signs: Last Vital Signs Temp 98.5 F 07/23/23 14:56 Pulse 76 07/23/23 14:56 Resp 16 07/23/23 14:56 BP 125/60 07/23/23 14:56 Pulse Ox 99 07/23/23 14:56 Oxygen Delivery Method Room Air 07/23/23 14:56 BMI result Body Mass Index 34.8 Assessment & Plan Assessment & Plan (1) Obesity: Code(s): E66.9 - Obesity, unspecified Plan: Pt has not started our meal or exercise plan yet. She is worried about surgery and has many excuses on why she has not started yet. We discussed that she needs to decide what she wants to do. I answered questions for her about revision surgery. If she wants to proceed she will need to start the plan we discussed at our first meeting. Once again, she was todl to stop the Phentermine that she is taking (given to her years ago - does not have many pills left she states. Appt made for 3 weeks from now with me. Patient is morbidly obese and is not considered stable at this time. I spent 30 minutes in total with patient reviewing/updating records, examining the patient and counseling the patient on weight management as detailed above. (2) History of sleeve gastrectomy: Comment: 2013 Code(s): Z90.3 - Acquired absence of stomach [part of] Orders: Orders H Pylori Breath Test Today Z01.818 - Encounter for other preprocedural examination Coding Level of Care Code Est Pt Level 4 (47485) Diagnoses Obesity E66.9 History of sleeve gastrectomy Z90.3
[2023-07-23 14:56] VITALS: BP 125/60; PULSE 76; RESP 16; TEMP 36.9; O2SAT 99; BMI 34.8
== END 2023-07-23 15:37 | disposition home or self-care (01) ==
PROVIDERS: PCP Internal Medicine; Visit Provider Physician Assistant
DX: E66.9 Obesity, unspecified (principal); Z90.3 Acquired absence of stomach [part of]
CPT/HCPCS: 99214

== ENCOUNTER 2023-07-23 14:51 | Outpatient (REF) | payer MEDICAID, SELFPAY ==
[2023-07-24 14:37] LABS: H Pylori Breath Test Negative (Negative)
== END 2023-07-23 14:52 | disposition home or self-care (01) ==
LOC: HO.LNP 14:51
PROVIDERS: PCP Internal Medicine; Visit Provider Physician Assistant
DX: Z01.818 Encounter for other preprocedural examination (principal); E66.9 Obesity, unspecified; Z71.3 Dietary counseling and surveillance; Z79.899 Other long term (current) drug therapy
CPT/HCPCS: 83013; 99211; 99212

== ENCOUNTER 2023-08-12 11:56 | Outpatient (REF) | payer MEDICAID, SELFPAY ==
[2023-08-12 13:28] LABS: MANUAL DIFF FLAG NO
[2023-08-12 13:51] LABS: Basophils Percent Auto 0.6 % (0-2); Eosinophils Absolute Auto 0.1 X10*3/uL (0.0-0.4); Eosinophils Percent Auto 1.5 % (0-4); Hematocrit 31.8 % (37.0-47.0); Hemoglobin 9.2 g/dl (12.0-16.0); Imm Gran Abs Auto 0.02 X10*3/uL (0.00-0.03); Imm Gran Pct Auto 0.3 % (0.0-0.4); Lymphocytes Absolute Auto 1.8 X10*3/uL (1.2-4.9); Mean Corpuscular HGB Conc 28.9 g/dl (31.0-35.0); Mean Corpuscular Hemoglobin 21.4 pg (27.0-33.0); Mean Corpuscular Volume 74.1 fL (80.0-98.0); Mean Platelet Volume 9.6 fL (9.4-12.3); Monocytes Absolute Auto 0.8 X10*3/uL (0.1-1.2); Monocytes Percent Auto 11.7 % (2-11); Neutrophils Absolute Auto 3.7 x10*3/uL (2.0-8.3); Neutrophils Percent Auto 57.9 % (45-73); Platelet Count 402 X10*3/uL (160-400); Red Blood Count 4.29 X10*6/uL (4.20-5.50); White Blood Count 6.5 X10*3/uL (4.8-10.8)
[2023-08-12 14:13] LABS: Alanine Aminotransferase 10 U/L (0-31); Albumin Level 3.8 g/dL (3.5-5.0); Alkaline Phosphatase 57 U/L (39-117); Anion Gap 12 (12-20); Aspartate Amino Transferase 13 U/L (5-31); Bilirubin Total 0.6 mg/dL (0.0-1.0); Blood Urea Nitrogen 12 mg/dL (9-16); Calcium 8.8 mg/dL (8.4-10.2); Carbon Dioxide 23 mmol/L (22-29); Chloride 108 mmol/L (96-108); Estimated Glomerular Filt Rate > 60; Glucose Random 76 mg/dL (60-115); Potassium 3.7 mmol/L (3.3-5.1); Sodium 139 mmol/L (135-145)
[2023-08-12 14:30] LABS: Ferritin 4 ng/mL (10-250)
== END 2023-08-12 11:57 | disposition home or self-care (01) ==
LOC: HO.10HDL 11:56
PROVIDERS: Visit Provider Internal Medicine
DX: D50.8 Other iron deficiency anemias (principal); I10 Essential (primary) hypertension; R21 Rash and other nonspecific skin eruption; Z98.84 Bariatric surgery status
CPT/HCPCS: 36415; 80053; 82728; 85025

== ENCOUNTER → 2023-08-26 15:00 | Outpatient (BNVA) | payer MEDICAID, SELFPAY | PROVIDERS: PCP Internal Medicine; Visit Provider Physician Assistant | DX: Z01.818 Encounter for other preprocedural examination (principal) ==

== ENCOUNTER 2023-09-23 15:27 | Outpatient (AMB) | payer MEDICAID, SELFPAY ==
--- NOTE | 2023-09-23 15:30 | A.OFFVIS_ITS ---
Intake Vital Signs 09/23/23 15:34 Height 5 ft 0.05 in Weight 180 lb BMI 35.1 BP 122/68 Blood Pressure Location Lt brachial Position Sitting Pulse 71 Intake Visit Reasons: Iron def and colonoscopy screening Intake Note: Juhi presents in the office as a new patient for iron def and a colonoscopy screening. CC: This will be her first colonoscopy - no concerns. Allergies avocado Allergy (Intermediate, Verified 10/06/23 11:23) Anaphylaxis perez Allergy (Intermediate, Verified 10/06/23 11:23) Anaphylaxis NUTS Allergy (Intermediate, Uncoded 10/06/23 11:23) Anaphylaxis HPI Iron def and colonoscopy screening HPI Details 43 year old? female here today for pre c olonoscopy screening.? Patient was sent to us by her PCP.? This is her first colonoscopy screening.? Patient reports history of anemia. She had bariatric surgery 8 years ago and since then she was anemic. Unable to absorb oral iron well. Patient reports that when she lived in [place] she used to received IV iron infusions every few months. Patient Kvng found to that well. Patient reports that oral iron causes her upset stomach and she can only take it once a day. Patient reports that she is constipated most likely related to iron. Patient denies any melena, hematochezia, unintentional weight loss or ribbon like stools.? Denies any personal or family history of gastrointestinal disease, colon polyps, or cancer.? Denies history of difficulty with sedation or anesthesia in the past.? Negative for history of sleep apnea.? Denies any history of cardiac, renal, pulmonary, or hepatic disease.?? No history of infectious? diseases like hepatitis A, B, C, HIV or tuberculosis.? Patient is not on any anticoagulation therapy. [facility] Medical History (Updated 10/06/23 @ 12:53 by Neelam Priest MD) Iron deficiency anemia Surgical History (Updated 10/06/23 @ 12:03 by Neelam Priest MD) Hx of abdominoplasty History of sleeve gastrectomy Hx of tubal ligation Hx of section Family History Mother Diabetes Hypertension Father Diabetes Hypertension History of open heart surgery Sister Hypertension Fatty liver Sister Diabetes Hypertension Fatty liver Family/Other Colon cancer Social History (Updated 10/06/23 @ 11:23 by Doris Call MA) Household Members: Spouse and Children Housing: Apartment Alcohol intake: never Patient Tobacco Use Status: Former Tobacco user Quit Date: 1999 Advance Directives Date on File: 05/17/23 service: No Current occupational status: employed Review of Systems Const Denies weight gain and Denies weight loss ENT Reports no additional complaints, Denies dysphagia and Denies odynophagia Card Reports no additional complaints Resp Reports no additional complaints GI Denies abdominal pain, Denies belching, Denies melena, Denies bloating, Denies change in bowel habits, Denies dysphagia, Denies excessive flatus, Denies dyspepsia, Reports heartburn, Denies diarrhea, Denies loose stools, Denies nausea, Denies odynophagia and Denies vomiting Reports no additional complaints Musc Reports no additional complaints Neuro Reports no additional complaints Psych Reports no additional complaints Endo Reports no additional complaints Physical Exam Vital Signs: Last Vital Signs Pulse 71 09/23/23 15:34 BP 122/68 09/23/23 15:34 BMI result Body Mass Index 35.1 Const General: healthy appearing, no acute distress and well developed Nutritional Appearance: obese Orientation/consciousness: patient oriented x3 HEENT Head: Yes normal to inspection, Yes normocephalic and Yes atraumatic Face and sinus: Yes normal facial exam Mouth: Normal oral and palatal mucosa present Throat: Yes posterior oropharynx normal, Yes tonsils normal and Yes uvula midline Eyes General: appearance normal, both eyes and all related structures Neck Neck: Yes normal visual inspection, Yes full ROM and Yes trachea midline Thyroid: Thyroid normal Resp Effort & Inspection: normal respiratory effort, able to speak in complete sentences, no tracheal deviation and symmetric chest movement Auscultation: clear to auscultation bilaterally Cardio Rate: regular rate GI Inspection: Yes normal to inspection, No distended and Yes obesity Palpation (GI): Soft to palpation, not firm, nontender and No hepatosplenomegaly present Auscultation: normal bowel sounds General: Yes no CVA tenderness Back/Spine/Pelvis Back: no CVA tenderness Skin General skin exam: elasticity normal, turgor normal and dry skin Neuro General: patient oriented x3 Psych Appearance: grossly normal Mental Status: mental status grossly normal Results Reviewed Results Reviewed: UPPER GI SERIES 2022 IMPRESSION: 1. Stomach contour as expected after gastric sleeve procedure. No definite dilatation seen. 2. Small to moderate-sized type I hiatus hernia. 3. Episodic and profound gastroesophageal reflux to the level of the thoracic inlet, likely causing a patulous esophagus with mild esophageal tortuosity. No mucosal abnormality or stricture. Mild presbyesophagus. 4. Normal duodenal bulb, duodenal sweep, and proximal jejunum. Assessment & Plan Assessment & Plan (1) Iron deficiency anemia: Code(s): D50.9 - Iron deficiency anemia, unspecified Qualifiers: Iron deficiency anemia type: other iron deficiency Qualified Code(s): D50.8 - Other iron deficiency anemias (2) GERD (gastroesophageal reflux disease): Code(s): K21.9 - Gastro-esophageal reflux disease without esophagitis Qualifiers: Esophagitis presence: esophagitis presence not specified Qualified Code(s): K21.9 - Gastro-esophageal reflux disease without esophagitis (3) History of sleeve gastrectomy: Comment: 2013 Code(s): Z90.3 - Acquired absence of stomach [part of] (4) Chronic idiopathic constipation: Code(s): K59.04 - Chronic idiopathic constipation Plan Patient will be referred to Hematology for iron infusion. Unable to absorb oral iron. Patient reports that she has been constipated. Start Dulcolax tablets. Patient was encouraged to increase fluid intake and activity to promote better bowel motility. Patient reports also epigastric discomfort, occasional dyspepsia. Patient can start taking Nexium in the morning half an hour before breakfast. She was encouraged to avoid dietary triggers and late night snacking. Patient was encouraged to eat smaller meals and more often. I will have her return in 5 weeks we will discuss going for possible upper endoscopy as well to rule out gastritis, subject is, duodenitis, gastric or peptic ulcers. Patient is agreeable to this plan and verbalizes understanding of instructions. She was given the opportunity to ask questions and all questions answered. Thank you for allowing me to participate in her care. Orders: Referrals Hematology & Oncology Referral D50.9 - Iron deficiency anemia, unspecified Medications: New bisacodyl (Dulcolax (bisacodyl)) 10 mg (2 x 5 mg) PO BEDTIME 180 tabs 4RF esomeprazole magnesium (Nexium) 40 mg PO DAILY 90 caps 5RF K21.9 - Gastro- esophageal reflux disease without esophagitis Coding Level of Care Code New Pt Level 4 (58955) Diagnoses Other iron deficiency anemia D50.8 Iron deficiency anemia type: other iron deficiency Gastroesophageal reflux disease, unspecified whether esophagitis present K21.9 Esophagitis presence: esophagitis presence not specified History of sleeve gastrectomy Z90.3 Chronic idiopathic constipation K59.04 Time Spent (min) 45 Comment 30 minutes spent with patient and additional 15 minutes spent reviewing her records
[2023-09-23 15:34] VITALS: BP 122/68; PULSE 71; BMI 35.1
== END 2023-09-23 16:41 | disposition home or self-care (01) ==
PROVIDERS: PCP Internal Medicine; Visit Provider Nurse Practitioner Family
DX: D50.8 Other iron deficiency anemias (principal); K21.9 Gastro-esophageal reflux disease without esophagitis; Z90.3 Acquired absence of stomach [part of]; K59.04 Chronic idiopathic constipation
CPT/HCPCS: 99204

== ENCOUNTER → 2023-09-23 15:27 | Outpatient (BNVA) | payer MEDICAID, SELFPAY | PROVIDERS: PCP Internal Medicine; Visit Provider Nurse Practitioner Family | DX: D50.9 Iron deficiency anemia, unspecified (principal); K21.9 Gastro-esophageal reflux disease without esophagitis; K59.04 Chronic idiopathic constipation; Z90.3 Acquired absence of stomach [part of] | CPT/HCPCS: 99212 ==

== ENCOUNTER → 2023-10-06 11:08 | Outpatient (BNV) | payer MEDICAID, SELFPAY | PROVIDERS: PCP Internal Medicine; Visit Provider Internal Medicine | DX: D64.9 Anemia, unspecified (principal) | CPT/HCPCS: 99204; 99213 ==

== ENCOUNTER 2023-10-17 12:04 | Outpatient (REF) | payer MEDICAID, SELFPAY | END 2023-10-17 12:05 | disposition home or self-care (01) | LOC: HO.MDS 12:04 | PROVIDERS: Visit Provider Internal Medicine | DX: D50.9 Iron deficiency anemia, unspecified (principal) | CPT/HCPCS: 96365; J1756 ==

== ENCOUNTER 2023-10-24 11:22 | Outpatient (REF) | payer MEDICAID, SELFPAY | END 2023-10-24 11:23 | disposition home or self-care (01) | LOC: HO.MDS 11:22 | PROVIDERS: Visit Provider Internal Medicine | DX: D50.9 Iron deficiency anemia, unspecified (principal) | CPT/HCPCS: 96365; J1756 ==

== ENCOUNTER 2023-11-03 12:41 | Outpatient (REF) | payer MEDICAID, SELFPAY | END 2023-11-03 12:42 | disposition home or self-care (01) | LOC: HO.MDS 12:41 | PROVIDERS: Visit Provider Internal Medicine | DX: D50.9 Iron deficiency anemia, unspecified (principal) | CPT/HCPCS: 96365; J1756 ==

== ENCOUNTER 2023-11-10 12:23 | Outpatient (REF) | payer MEDICAID, SELFPAY | END 2023-11-10 12:24 | disposition home or self-care (01) | LOC: HO.MDS 12:23 | PROVIDERS: Visit Provider Internal Medicine | DX: Z13.89 Encounter for screening for other disorder (principal) ==

== ENCOUNTER 2023-11-20 12:38 | Outpatient (REF) | payer MEDICAID, SELFPAY | END 2023-11-20 12:39 | disposition home or self-care (01) | LOC: HO.MDS 12:38 | PROVIDERS: Visit Provider Internal Medicine | DX: D50.9 Iron deficiency anemia, unspecified (principal) | CPT/HCPCS: 96365; J1756 ==

== ENCOUNTER 2023-11-27 14:37 | Outpatient (AMB) | payer MEDICAID, SELFPAY ==
[2023-11-27 14:47] VITALS: BP 137/69; PULSE 73; BMI 35.6
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
== END 2023-11-27 15:51 | disposition home or self-care (01) ==
PROVIDERS: PCP Internal Medicine; Visit Provider Nurse Practitioner Family
DX: K21.9 Gastro-esophageal reflux disease without esophagitis (principal); Z90.3 Acquired absence of stomach [part of]; D50.8 Other iron deficiency anemias; K59.04 Chronic idiopathic constipation
CPT/HCPCS: 99214

== ENCOUNTER 2023-11-27 14:37 | Outpatient (REF) | payer MEDICAID, SELFPAY ==
[2023-11-27 16:35] LABS: Hematocrit 38.7 % (37.0-47.0); Hemoglobin 11.9 g/dl (12.0-16.0); Mean Corpuscular HGB Conc 30.7 g/dl (31.0-35.0); Mean Corpuscular Hemoglobin 25.1 pg (27.0-33.0); Mean Corpuscular Volume 81.6 fL (80.0-98.0); Mean Platelet Volume 9.6 fL (9.4-12.3); Platelet Count 320 X10*3/uL (160-400); Red Blood Count 4.74 X10*6/uL (4.20-5.50); Red Cell Distribution Width 24.4 % (11.0-16.0); White Blood Count 6.2 X10*3/uL (4.8-10.8)
[2023-11-27 17:06] LABS: Iron 74 mcg/dL (30-160); Percent Iron Saturation 25 % (15-50); Total Iron Binding Capacity 298 mcg/dL (228-428); Unsaturated Iron Binding 224 ug/dL
[2023-11-28 08:24] LABS: HBS Num1 0.41 mIU/mL (0-7.99); HBc Num1 0.06 S/CO (0.00-0.79); HBsAGNum1 0.43 S/CO (0.00-0.99); HIV AB/AG Nonreactive (Nonreactive); HIV Num 1 0.05 S/CO (0.00-0.99); Hepatitis A Antibody IgM 0.17 Index (0-0.79); Hepatitis B Core Antibody Nonreactive (Nonreactive); Hepatitis B Surface Antigen Negative (Negative); ~HepC Num1 0.09 S/CO (0.00-0.79); ~Hepatitis A Antibody IgM Nonreactive (Nonreactive); ~Hepatitis B Surface Antibody NONREACTIVE (Nonreactive); ~Hepatitis C Antibody Nonreactive (Nonreactive)
[2023-12-01 09:49] LABS: Zinc 64 mcg/dL (60-130)
== END 2023-11-27 14:38 | disposition home or self-care (01) ==
LOC: HO.LAB 14:37
PROVIDERS: Physician Assistant; PCP Internal Medicine; Visit Provider Nurse Practitioner Family
DX: E66.9 Obesity, unspecified (principal); K21.9 Gastro-esophageal reflux disease without esophagitis; K59.04 Chronic idiopathic constipation; D50.8 Other iron deficiency anemias; R79.89 Other specified abnormal findings of blood chemistry; Z90.3 Acquired absence of stomach [part of]
CPT/HCPCS: 36415; 83540; 84630; 85027; 86704; 86706; 86709; 86803; 87340; 87389; 99212

== ENCOUNTER 2024-01-20 11:55 | Day surgery (SDC) | payer MEDICAID, SELFPAY ==
--- NOTE | 2024-01-19 10:00 | HO.ANESPROP2 ---
Documented by User: Violette Weinstein NP 01/19/24 10:01 HPI - Anesthesia Eval Consult details Narrative: 43yo F for Upper Endoscopy and Colonoscopy PMF Active Problems Active Problems: All Active Problems (Updated 10/06/23 @ 12:03 by Neelam Priest MD) GERD (gastroesophageal reflux disease) (Acute) Anemia (Chronic) Obesity (Acute) Hx of abdominoplasty (Acute) History of sleeve gastrectomy (Acute) Past Medical History Medical History Iron deficiency anemia Family History Family History Mother Diabetes Hypertension Father Diabetes Hypertension History of open heart surgery Sister Hypertension Fatty liver Sister Diabetes Hypertension Fatty liver Family/Other Colon cancer Surgical History Surgical History Hx of abdominoplasty History of sleeve gastrectomy Hx of tubal ligation Hx of section Social History Social History Household Members: Spouse and Children Housing: Apartment Alcohol intake: never Patient Tobacco Use Status: Former Tobacco user Quit Date: 1999 Second Hand Smoke Exposure: No Use of substances other than those prescribed or required for medical reasons: No Are you DNR?: No Advance Directives: No Advance Directives Information Provided: Yes Advance Directives on File: No Advance Directives Date on File: 05/17/23 service: No Current occupational status: employed Meds Allergies Allergy/AdvReac Type Severity Reaction Status Date / Time avocado Allergy Intermediate Anaphylaxis Verified 11/27/23 14:51 perez Allergy Intermediate Anaphylaxis Verified 11/27/23 14:51 No Known Drug Allergies Allergy Unknown NONE Verified 11/27/23 14:57 NUTS Allergy Intermediate Anaphylaxis Uncoded 10/06/23 11:23 Home Medications Medication Instructions Recorded Confirmed Last Taken Type ergocalciferol (vitamin D2) 1,250 2,500 mcg PO QWEEK 06/05/23 01/06/24 Unknown History mcg (50,000 unit) capsule losartan 50 mg tablet 50 mg PO DAILY 06/05/23 01/06/24 Unknown History norethindrone (contraceptive) 0.35 0.35 mg PO DAILY 09/23/23 01/06/24 Unknown History mg tablet Assessment and Plan Assessment Anesthesia Assessment: Chart Reviewed Documented by User: Bruce Sweeney MD 01/20/24 12:47 [facility] Past Medical History Medical History Iron deficiency anemia Family History Family History Mother Diabetes Hypertension Father Diabetes Hypertension History of open heart surgery Sister Hypertension Fatty liver Sister Diabetes Hypertension Fatty liver Family/Other Colon cancer Family history of problems with anesthesia: No Surgical History Surgical History Hx of abdominoplasty History of sleeve gastrectomy Hx of tubal ligation Hx of section History of Problems with Anesthesia: No Social History Social History Household Members: Spouse and Children Housing: Apartment Alcohol intake: never Patient Tobacco Use Status: Former Tobacco user Quit Date: 1999 Second Hand Smoke Exposure: No Use of substances other than those prescribed or required for medical reasons: No Are you DNR?: No Advance Directives: No Advance Directives Information Provided: Yes Advance Directives on File: No Advance Directives Date on File: 05/17/23 service: No Current occupational status: employed Meds Allergies Allergy/AdvReac Type Severity Reaction Status Date / Time avocado Allergy Intermediate Anaphylaxis Verified 11/27/23 14:51 perez Allergy Intermediate Anaphylaxis Verified 11/27/23 14:51 No Known Drug Allergies Allergy Unknown NONE Verified 11/27/23 14:57 NUTS Allergy Intermediate Anaphylaxis Uncoded 10/06/23 11:23 Home Medications Medication Instructions Recorded Confirmed Last Taken Type ergocalciferol (vitamin D2) 1,250 2,500 mcg PO QWEEK 06/05/23 01/06/24 Unknown History mcg (50,000 unit) capsule losartan 50 mg tablet 50 mg PO DAILY 06/05/23 01/06/24 Unknown History norethindrone (contraceptive) 0.35 0.35 mg PO DAILY 09/23/23 01/06/24 Unknown History mg tablet Exam Airway Mallampati Class: II TM Dist: >3cm Neck ROM: Full Loose/Missing/Broken Teeth: No Assessment and Plan Assessment Anesthesia Assessment: Anesthesia Plan Discussed Final Anesthetic Review Family History of Problems with Anesthesia: No History of Problems with Anesthesia: No NPO: Yes ASA Class: II Final Preanesthetic Review: No Changes in Pt Med Stat, Meds/Allgs Chart Reviewed, Consent Obtained/Reviewed and Anes Risks/Benef Reviewed Patient Risk: Low Procedure Risk: Low Anesthetic Plan Anesthetic Plan: MAC: Disposition: Standard PACU Documented by User: Sabiha Pagan MD 01/20/24 12:48 PMF[facility] Active Problems Active Problems: All Active Problems (Updated 10/06/23 @ 12:03 by Neelam Priest MD) GERD (gastroesophageal reflux disease) (Acute) Anemia (Chronic) Obesity (Acute)BMI Hx of abdominoplasty (Acute) History of sleeve gastrectomy (Acute) Past Medical History Medical History Iron deficiency anemia Family History Family History Mother Diabetes Hypertension Father Diabetes Hypertension History of open heart surgery Sister Hypertension Fatty liver Sister Diabetes Hypertension Fatty liver Family/Other Colon cancer Surgical History Surgical History Hx of abdominoplasty History of sleeve gastrectomy Hx of tubal ligation Hx of section Social History Social History Household Members: Spouse and Children Housing: Apartment Alcohol intake: never Patient Tobacco Use Status: Former Tobacco user Quit Date: 1999 Second Hand Smoke Exposure: No Use of substances other than those prescribed or required for medical reasons: No Are you DNR?: No Advance Directives: No Advance Directives Information Provided: Yes Advance Directives on File: No Advance Directives Date on File: 05/17/23 service: No Current occupational status: employed Meds Allergies Allergy/AdvReac Type Severity Reaction Status Date / Time avocado Allergy Intermediate Anaphylaxis Verified 11/27/23 14:51 perez Allergy Intermediate Anaphylaxis Verified 11/27/23 14:51 No Known Drug Allergies Allergy Unknown NONE Verified 11/27/23 14:57 NUTS Allergy Intermediate Anaphylaxis Uncoded 10/06/23 11:23 Home Medications Medication Instructions Recorded Confirmed Last Taken Type ergocalciferol (vitamin D2) 1,250 2,500 mcg PO QWEEK 06/05/23 01/06/24 Unknown History mcg (50,000 unit) capsule losartan 50 mg tablet 50 mg PO DAILY 06/05/23 01/06/24 Unknown History norethindrone (contraceptive) 0.35 0.35 mg PO DAILY 09/23/23 01/06/24 Unknown History mg tablet
[2024-01-20 12:42] VITALS: BMI 36.0
--- NOTE | 2024-01-20 12:49 | MHC.SHP ---
Pre-Procedural Eval Section A - 24 Hr Update-Section A only Date of Service: 01/20/24 Section B - Complete if H&P > 30 days Chief Complaint: Iron deficiency anemia Details of Present Illness: Iron deficiency anemia Surgical History Hx of abdominoplasty History of sleeve gastrectomy Hx of tubal ligation Hx of section Present Medications: see Short Stay Collaborative assessment Allergies: Allergies Allergy/AdvReac Type Severity Reaction Status Date / Time avocado Allergy Intermediate Anaphylaxis Verified 11/27/23 14:51 perez Allergy Intermediate Anaphylaxis Verified 11/27/23 14:51 No Known Drug Allergies Allergy Unknown NONE Verified 11/27/23 14:57 NUTS Allergy Intermediate Anaphylaxis Uncoded 10/06/23 11:23 Review of Systems Review of Systems Comment: Ten point ROS negative Exam Exam Comment: Gen appear: No acute distress HEENT: no icterus Chest: No overt resp distress Abd: soft, nontender, nondistended Psych: Stable affect, answering questions appropriately Neuro: A/Ox3 noted to move all extremities spontaneously Ext: no peripheral edema Plan Diagnosis/Plan: Unchanged I have reviewed the history and physical and performed a pertinent physical examination on my patient. No changes have occurred unless specified. Time Spent With Patient Time: Total time managing care of this patient today ____ minutes.
--- NOTE | 2024-01-20 12:53 | P.OP_ITS ---
Operative Note Operative Note Date of Service: 01/20/24 Narrative: Procedure: Upper endoscopy and colonoscopy Indication: Iron deficiency anemia Endoscopist: Alma Romero MD Anesthesia Provider: Dr Milton Anesthesia type: MAC Instrument: Olympus [id number]-[id number] ?? EGD Procedure:?? The procedure, indications, preparation and potential complications were reviewed with the patient, who indicated understanding and gave written informed consent to proceed. A physical exam was performed. The endoscope was introduced through the mouth, and advanced to the duodenum. The mucosa was carefully examined on slow withdrawal of the endoscope. The patient tolerated the procedure well. There were no immediate complications.? ? EGD Findings:? * Esophagus:? Normal esophageal mucosa was noted with Z line at 31 cm. * Stomach:? The stomach was tubular with a linear scar in the body. There was a 1 cm subepithelial nodule in the distal body of the stomach along the greater curvature. Bite on bite cold forceps biopsies were taken for histology. Retroflexion was performed in the cardia. Random cold forceps biopsies were taken to rule out H Pylori. * Duodenum: Normal duodenal mucosa was noted. Cold forceps biopsies were taken from the duodenal bulb and 2nd portion of the duodenal to rule out celiac sprue. Colonoscopy Procedure: The patient was then turned for the colonoscopy. A digital rectal exam was performed which was normal. A distal attachment cap was affixed to the tip of the scope which was then inserted through the anus and advanced through the colon to the cecum at 75 cm and terminal ileum. Appendiceal orifice and ileocecal valve were identified. Mucosa was carefully examined under high definition white light as the instrument was slowly withdrawn in a retrograde panoramic fashion. Retroflexion was performed in the rectum. The procedure was not difficult. There were no immediate obvious complications. The quality of the prep was BBPS: 2+3+2 = adequate Limitations: No limitations Colonoscopy Findings: Mucosa: Normal to cecum and terminal ileum. Protruding lesions: * Medium internal hemorrhoids Impressions:? * Normal esophagus * Sleeve gastrectomy anatomy * Subepithelial gastric nodule * Normal duodenum * Internal hemorrhoids Recommendations: - Follow path results - Avoid NSAIDs - If bx negative for celiac and H Pylori, anemia likely 2/2 menorrhagia - Repeat colonoscopy in 10 years for asymptomatic colorectal ca screening
[2024-01-20 12:56] VITALS: BP 124/74; PULSE 67; RESP 16; TEMP 36.8; O2SAT 95
[2024-01-20] MEDS: Lactated Ringers 1,000 ML 100 ML IVCONT (13:01)
[2024-01-20 13:41] VITALS: BP 109/67; PULSE 64; RESP 19; TEMP 36.8; O2SAT 100
[2024-01-20 13:46] VITALS: BP 114/71; PULSE 68; RESP 18; O2SAT 98
[2024-01-20 13:51] VITALS: BP 120/76; PULSE 67; RESP 18; O2SAT 100
[2024-01-20 13:56] VITALS: BP 126/68; PULSE 56; RESP 18; TEMP 36.6; O2SAT 100
== END 2024-01-20 14:20 | disposition home or self-care (01) ==
PROVIDERS: PCP Internal Medicine; Visit Provider Internal Medicine
PROC: (CPT 45378; principal; 2024-01-20 13:50)
DX: D50.9 Iron deficiency anemia, unspecified (principal); K64.8 Other hemorrhoids; K21.9 Gastro-esophageal reflux disease without esophagitis; K29.50 Unspecified chronic gastritis without bleeding; K31.7 Polyp of stomach and duodenum; Z98.84 Bariatric surgery status; Z98.890 Other specified postprocedural states
CPT/HCPCS: 45378; 43239; 88305; 88313; 88342; J2704

== ENCOUNTER → 2024-01-20 11:55 | Outpatient (BNV) | payer MEDICAID, SELFPAY | PROVIDERS: PCP Internal Medicine; Visit Provider Internal Medicine | DX: D50.9 Iron deficiency anemia, unspecified (principal); D13.1 Benign neoplasm of stomach; Z90.3 Acquired absence of stomach [part of]; Z98.84 Bariatric surgery status; K64.8 Other hemorrhoids | CPT/HCPCS: 43239; 45378 ==

== ENCOUNTER 2024-01-22 11:49 | Outpatient (RCR) | payer MEDICAID, SELFPAY ==
--- NOTE | 2024-01-22 13:37 | MHC.PT.EP ---
[facility] [place] Office [place] Office [place] Office [address] Ashli Osman [address] [phone] F: [phone] F: [phone] F: [phone] F: [phone] Physical Therapy Plan of Care Date of Evaluation: 01/22/24 Date of Surgery: N/A Diagnosis: bilateral knee pain (RL) Assessment: pt is a 43 y/o female presenting to physical therapy w/ referring diagnosis of bilateral knee pain. Impairments include pain, decreased range of motion, decreased strength, impaired functional mobility, impaired postural awareness, and altered ambulation mechanics. pt is a good candidate for skilled PT due to age, potential remediation of impairments, typical disease/condition progression and prognosis, comorbidities, and motivation. pt would benefit from skilled PT intervention to provide a tailored strengthening and stretching exercise program, functional training, gait training, postural re-training, neuromuscular re-education, modalities as needed for pain, equipment safety demonstration. Frequency and Duration: The patient will be seen 2x/wk for 4 wks Short Term Goals: pt will be I w/ HEP to promote self-management of condition. pt will improve B hamstring strength to 5/5 to reduce genu recurvatum thrust. 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 Treatment Plan: Modalities to reduce pain, spasms and effusion. Manual therapy to restore motion and function. Therapeutic exercise to improve strength and flexibility. Neuromuscular re-education for posture and balance. Therapeutic activities to return to functional activities of daily living. Electronically signed by: Radha Acosta PT, DPT Please sign and return to therapist. Thank you for your referral.
--- NOTE | 2024-02-19 07:49 | MHC.PT.DC ---
[facility] [place] Office [place] Office [place] Office [address] Ashli Osman 140 [facility] [phone] F: [phone] F: [phone] F: [phone] F: [phone] Physical Therapy Discharge Report Diagnosis: bilateral knee pain (RL) Date of Surgery: N/A Date of Evaluation: 01/22/24 Date of Discharge: 02/19/24 Treatments to Date: 1 Cancellations to Date: 1 No Shows to Date: 2 Discharge Status: Visit Non-compliance Discharge Summary: The patient has not attended any of her scheduled visits after the initial evaluation. She is discharged for non-compliance. Electronically signed by: Radha Acosta PT, DPT Please sign and return to therapist. Thank you for your referral.
== END 2024-02-19 07:49 | disposition home or self-care (01) ==
LOC: HO.PT 11:49
PROVIDERS: PCP Internal Medicine; Visit Provider Internal Medicine
DX: M22.2X2 Patellofemoral disorders, left knee (principal); M22.2X1 Patellofemoral disorders, right knee
CPT/HCPCS: 97161

== ENCOUNTER 2024-02-03 12:49 | Outpatient (AMB) | payer MEDICAID, SELFPAY ==
--- NOTE | 2024-02-03 12:52 | A.OFFVIS_ITS ---
Intake Vital Signs 02/03/24 12:53 Height 5 ft Weight 188 lb 4.396 oz BMI 36.8 BP 122/71 Blood Pressure Location Lt brachial Position Sitting Pulse 61 Intake Visit Reasons: s/p egd/colon Intake Note: Patient in office today in follow up s/p EGD and colonoscopy. CC: Patient reports that she is doing well and denies having any GI concerns today. 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 Will check patient's iron level and H&H. What to expect before during and after procedure discussed with patient. Patient will be sent for upper endoscopy due to her dyspepsia. Currently on Nexium and is working. Patient has a history of gastric sleeve. Will rule out gastritis, esophagitis, duodenitis, gastric or peptic ulcer, Durham's, H pylori. Clear liquid diet day before procedure as well as good bowel prep stressed with patient. I will see her after the procedure, sooner on as needed basis. Patient is agreeable to this plan and verbalizes understanding of instructions. She was given the opportunity to ask questions and all questions answered. ? Thank you for allowing me to participate in her care Orders Orders HIV Ab/Ag 11/27/23 R79.89 Complete Blood Count no Diff 11/27/23 K21.9 Hepatitis A,B,C Profile 11/27/23 R79.89 IRON PROFILE 11/27/23 D64.9 Medications New polyethylene glycol 3350 (Miralax) As directed by gastroenterology department at [facility] 238 grams PO ONCE 238 grams 0RF Z12.11 UPPER ENDOSCOPY AND COLONOSCOPY EGD Findings:? * Esophagus:? Normal esophageal mucosa was noted with Z line at 31 cm. * Stomach:? The stomach was tubular with a linear scar in the body. There was a 1 cm subepithelial nodule in the distal body of the stomach along the greater curvature. Bite on bite cold forceps biopsies were taken for histology. Retroflexion was performed in the cardia. Random cold forceps biopsies were taken to rule out H Pylori. * Duodenum: Normal duodenal mucosa was noted. Cold forceps biopsies were taken from the duodenal bulb and 2nd portion of the duodenal to rule out celiac sprue. Colonoscopy Procedure: The patient was then turned for the colonoscopy. A digital rectal exam was performed which was normal. A distal attachment cap was affixed to the tip of the scope which was then inserted through the anus and advanced through the colon to the cecum at 75 cm and terminal ileum. Appendiceal orifice and ileocecal valve were identified. Mucosa was carefully examined under high definition white light as the instrument was slowly withdrawn in a retrograde panoramic fashion. Retroflexion was performed in the rectum. The procedure was not difficult. There were no immediate obvious complications. The quality of the prep was BBPS: 2+3+2 = adequate Limitations: No limitations Colonoscopy Findings: Mucosa: Normal to cecum and terminal ileum. Protruding lesions: * Medium internal hemorrhoids Impressions:? * Normal esophagus * Sleeve gastrectomy anatomy * Subepithelial gastric nodule * Normal duodenum * Internal hemorrhoids Recommendations: - Follow path results - Avoid NSAIDs - If bx negative for celiac and H Pylori , anemia likely 2/2 menorrhagia - Repeat colonoscopy in 10 years for asy mptomatic colorectal ca screening PATHOLOGY RESULTS Diagnosis A. Duodenum, biopsy: Duodenal mucosa with preserved villi and no specific change. B. Stomach, random, biopsy: Gastric antral and body mucosa with minimal chronic inactive gastritis; negative for H pylori, intestinal metaplasia and dysplasia. C. Gastric nodule, biopsy: Gastric antral mucosa with lymphoid aggregate and minimal chronic inactive gastritis; negative for H pylori, intestinal metaplasia and dysplasia TODAY'S VISIT: Patient is here today for follow-up and to discuss upper endoscopy and colonoscopy results. Patient had normal colonoscopy, minimal chronic inactive gastritis, negative for H pylori or intestinal metaplasia or dysplasia. Patient reports that she has no symptoms with like to stop taking Nexium. Patient reports that she has no dyspepsia, dysphagia or odynophagia. Patient denies any ill effects from the prep, anesthesia or procedure itself. Patient reports to be feeling well, denies any GI concerning symptoms. [facility] Medical History Iron deficiency anemia Surgical History History of esophagogastroduodenoscopy (EGD) H/O colonoscopy Hx of abdominoplasty History of sleeve gastrectomy Hx of tubal ligation Hx of section Family History Mother Diabetes Hypertension Father Diabetes Hypertension History of open heart surgery Sister Hypertension Fatty liver Sister Diabetes Hypertension Fatty liver Family/Other Colon cancer Social History Household Members: Spouse and Children Housing: Apartment Alcohol intake: never Patient Tobacco Use Status: Former Tobacco user Quit Date: 1999 Second Hand Smoke Exposure: No Advance Directives Date on File: 05/17/23 service: No Current occupational status: employed Review of Systems Const Denies weight gain and Denies weight loss ENT Reports no additional complaints, Denies dysphagia and Denies odynophagia Card Reports no additional complaints Resp Reports no additional complaints GI Denies abdominal pain, Denies belching, Denies melena, Denies bloating, Denies change in bowel habits, Denies dysphagia, Denies excessive flatus, Denies dyspepsia, Denies heartburn, Denies diarrhea, Denies loose stools, Denies nausea, Denies odynophagia and Denies vomiting Musc Reports no additional complaints Neuro Reports no additional complaints Psych Reports no additional complaints Endo Reports no additional complaints Physical Exam Vital Signs: Last Vital Signs Pulse 61 02/03/24 12:53 BP 122/71 02/03/24 12:53 BMI result Body Mass Index 36.8 Const General: healthy appearing and no acute distress Nutritional Appearance: obese Orientation/consciousness: patient oriented x3 Resp Effort & Inspection: normal respiratory effort, able to speak in complete sentences, no tracheal deviation and symmetric chest movement Auscultation: clear to auscultation bilaterally Cardio Rate: regular rate GI Inspection: Yes normal to inspection, No distended and Yes obesity Palpation (GI): Soft to palpation, not firm, nontender and No hepatosplenomegaly present Auscultation: normal bowel sounds General: Yes no CVA tenderness Back/Spine/Pelvis Back: no CVA tenderness Skin General skin exam: elasticity normal, turgor normal and dry skin Neuro General: patient oriented x3 Psych Appearance: grossly normal Mental Status: mental status grossly normal Assessment & Plan Assessment & Plan (1) GERD (gastroesophageal reflux disease): Code(s): K21.9 - Gastro-esophageal reflux disease without esophagitis Qualifiers: Esophagitis presence: esophagitis presence not specified Qualified Code(s): K21.9 - Gastro-esophageal reflux disease without esophagitis (2) Status post colonoscopy: Code(s): Z98.890 - Other specified postprocedural states Plan Continue avoiding dietary trigger fingers and late night snacking. Staying upright for minimal 3 hours after meals discussed with patient. Patient will take Nexium every other day then discontinue. If she will have any GI symptoms she will call us on as-needed basis. Colonoscopy repeat in 10 years, sooner if clinically necessary. Patient is agreeable to this plan and verbalizes understa nding of instructions. She was given the opportunity to ask questions and all questions answered. Thank you for allowing me to participate in her care Medications: Discontinued esomeprazole magnesium (Nexium) Discontinued Reason: Doctor's Order 40 mg PO DAILY 90 caps 5RF K21.9 - Ga stro-esophageal reflux disease without esophagitis Coding Level of Care Code Est Pt Level 3 (59391) Diagnoses Gastroesophageal reflux disease, unspecified whether esophagitis present K21.9 Esophagitis presence: esophagitis presence not specified Status post colonoscopy Z98.890 Time Spent (min) 30 Comment 20 minutes spent with patient and additional 10 minutes spent reviewing her records
[2024-02-03 12:53] VITALS: BP 122/71; PULSE 61; BMI 36.8
== END 2024-02-03 13:53 | disposition home or self-care (01) ==
PROVIDERS: PCP Internal Medicine; Visit Provider Nurse Practitioner Family
DX: K21.9 Gastro-esophageal reflux disease without esophagitis (principal); Z98.890 Other specified postprocedural states
CPT/HCPCS: 99213

== ENCOUNTER → 2024-02-03 12:49 | Outpatient (BNVA) | payer MEDICAID, SELFPAY | PROVIDERS: PCP Internal Medicine; Visit Provider Nurse Practitioner Family | DX: K21.9 Gastro-esophageal reflux disease without esophagitis (principal); Z98.890 Other specified postprocedural states | CPT/HCPCS: 99212 ==

== ENCOUNTER 2024-05-24 13:42 | Outpatient (REF) | payer MEDICAID, SELFPAY ==
--- NOTE | ~2024-05-24 | MM_ITS ---
EXAMINATION: MM SCREENING DIGITAL BREAST TOMOSYNTHESIS, BILATERAL CLINICAL INFORMATION: Screening. Asymptomatic. COMPARISON: Mammography: This study is compared with prior exams dating back to 2019. TECHNIQUE: Digital breast tomosynthesis is performed in both the craniocaudal and mediolateral oblique views along with computer-aided detection (CAD). Synthesized 2D images are generated from the tomosynthesis. FINDINGS: There are scattered areas of fibroglandular density (ACR BI-RADS breast composition Category b). In the lateral aspect of the right breast there is an asymmetry warrants additional mammographic and targeted sonographic imaging. In the left breast, there are no are no significant masses, abnormal calcifications, or other abnormalities. MM/MM tomosynthesis screening BI IMPRESSION: Asymmetry of the lateral aspect of the left breast warrants additional mammographic and targeted sonographic evaluation. No mammographic signs of malignancy left breast. ASSESSMENT: BI-RADS BI-RADS 0 - Incomplete: Needs additional Imaging. RECOMMENDATION: 1. Additional views of the right breast. 2. Targeted ultrasound if warranted after review of the additional views. 3. Radiology department staff will contact the patient for additional imaging. Additional Imaging required This examination should not preclude the clinical evaluation of a suspicious palpable abnormality. This patient's information was entered into a reminder system with a target due date for their next mammogram.
== END 2024-05-24 13:43 | disposition home or self-care (01) ==
LOC: HO.MAMMO 13:42
PROVIDERS: PCP Internal Medicine; Visit Provider Internal Medicine
DX: Z12.31 Encounter for screening mammogram for malignant neoplasm of breast (principal)
CPT/HCPCS: 77063; 77067

== ENCOUNTER → 2024-05-24 14:15 | Outpatient (BNV) | payer MEDICAID, SELFPAY | PROVIDERS: PCP Internal Medicine; Visit Provider Radiology Diagnostic Radiology | DX: Z12.31 Encounter for screening mammogram for malignant neoplasm of breast (principal) | CPT/HCPCS: 77063; 77067 ==

== ENCOUNTER 2024-07-21 13:11 | Outpatient (REF) | payer MEDICAID, SELFPAY ==
--- NOTE | ~2024-07-21 | US_ITS ---
EXAMINATION: MM DIAGNOSTIC DIGITAL BREAST TOMOSYNTHESIS, callback from screening for asymmetry in the right breast on CC view. CLINICAL INFORMATION: Callback from screening for asymmetry in the right breast on CC view. COMPARISON: Mammography: Comparison is made with available prior exams. TECHNIQUE: Digital breast tomosynthesis is performed in both the craniocaudal and mediolateral oblique views along with computer-aided detection (CAD). Synthesized 2D images are generated from the tomosynthesis. FINDINGS: There are scattered areas of fibroglandular density (ACR BI-RADS breast composition Category b). Asymmetry in the lateral right breast middle depth on CC view does not persist on additional imaging projections and likely represented overlapping breast tissue. There are no significant masses, abnormal calcifications, or other abnormalities. Targeted color Doppler ultrasound scanning from 7-10 o'clock in the lateral right breast demonstrates normal fibroglandular breast tissue. There is no sonographic abnormality. US/US breast RT limited mamm only IMPRESSION: No mammographic or sonographic evidence of malignancy. Recommend return to annual screening. ASSESSMENT: BI-RADS BI-RADS 1 - Negative RECOMMENDATION: 1 year F/U Results were discussed with the patient at time of visit. This patient's information was entered into a reminder system with a target due date for their next mammogram. Electronically signed by: Pinky Lynn DO 07/21/2024 02:13 PM EDT
== END 2024-07-21 13:12 | disposition home or self-care (01) ==
LOC: HO.MAMMO 13:11
PROVIDERS: PCP Internal Medicine; Visit Provider Internal Medicine
DX: N64.89 Other specified disorders of breast (principal)
CPT/HCPCS: 76642; 77061; 77065

== ENCOUNTER → 2024-07-21 13:30 | Outpatient (BNV) | payer MEDICAID, SELFPAY | PROVIDERS: PCP Internal Medicine; Visit Provider Internal Medicine | DX: R92.8 Other abnormal and inconclusive findings on diagnostic imaging of breast (principal) | CPT/HCPCS: 76642; 77061; 77065 ==